=== PATIENT | male | born 1955 | race African-American/Black ===

== ENCOUNTER 2024-10-30 12:27 | Inpatient (IN) | payer OTHER ==
[2024-10-30 13:01] VITALS: BMI 17.4
[2024-10-30] MEDS ORDERED: ACETAMINOPHEN 325 MG TABLET (FP) PO PRN (13:15)
[2024-10-30] MEDS ORDERED: POLYETHYLENE GLYCOL (HEALTHYLAX) 3350 17 GM PACKET PO PRN (13:15)
[2024-10-30] MEDS ORDERED: IBUPROFEN 600 MG TABLET (FP) PO PRN (13:15)
[2024-10-30] MEDS ORDERED: BISMUTH SUBSALICYLATE 524 MG/30 ML PO PRN (13:15)
[2024-10-30] MEDS ORDERED: IBUPROFEN 400 MG TABLET (FP) PO PRN (13:15)
[2024-10-30] MEDS ORDERED: MAGNESIUM HYDROX 2400MG/30ML ORAL SUSPENSION 30 ML CUP PO PRN (13:15)
[2024-10-30] MEDS ORDERED: DICYCLOMINE HCL 10 MG CAPSULE PO PRN (13:15)
[2024-10-30] MEDS ORDERED: NALOXONE (NARCAN) HCL 4 MG/0.1 ML SPRAY NS PRN (13:15)
[2024-10-30] MEDS ORDERED: BENZOCAINE/MENTHOL (CHLORASEPTIC ) LOZENGE MM PRN (13:15)
[2024-10-30] MEDS ORDERED: METHOCARBAMOL 500 MG TABLET PO PRN (13:15)
[2024-10-30] MEDS ORDERED: ONDANSETRON *ODT* 4 MG TABLET SL PRN (13:15)
[2024-10-30] MEDS ORDERED: guaiFENesin 600 MG TABLET.ER (FP) PO PRN (13:15)
[2024-10-30] MEDS ORDERED: hydrOXYzine PAMOATE 25 MG CAPSULE (FP) PO PRN (13:15)
[2024-10-30] MEDS ORDERED: BENZONATATE 200 MG CAPSULE PO PRN (13:15)
[2024-10-30] MEDS ORDERED: MAG HYDROX/AL HYDROX/SIMETH 30 ML UNIT-DOSE CUP PO PRN (13:15)
[2024-10-30] MEDS ORDERED: cloNIDine HCL 0.1 MG TABLET ONE (14:35)
[2024-10-30] MEDS ORDERED: PRENATAL VITAMINS W/ FOLIC ACID TABLET (FP) PO ONE (14:35)
[2024-10-30] MEDS ORDERED: methaDONE HCL 10 MG TABLET (FOR DETOX USE ONLY) ONE (14:35)
[2024-10-30] MEDS: methaDONE HCL 10 MG TABLET PO ONE (14:40)
[2024-10-30] MEDS: PRENATAL VITAMINS W/ FOLIC ACID TABLET (FP) PO SCH (14:40)
[2024-10-30] MEDS: cloNIDine HCL 0.1 MG TABLET PO SCH (14:40)
[2024-10-30] MEDS ORDERED: methaDONE HCL 10 MG TABLET PO PRN (15:16)
[2024-10-30] MEDS: GABAPENTIN 100 MG CAPSULE PO SCH ×2 (17:29→17:35)
[2024-10-30] MEDS: THIAMINE 100 MG TABLET PO SCH (22:27)
[2024-10-30] MEDS: MELATONIN 5 MG TABLETS PO SCH (22:27)
[2024-10-30] MEDS: KETOCONAZOLE 2% CREAM - 60GM TUBE TP SCH (22:43)
[2024-10-31] MEDS: BICTEGRAV/EMTRICIT/TENOFOV (BIKTARVY) 50-200-25 MG TABLET PO SCH (07:06)
[2024-10-31] MEDS: SULFAMETHOXAZOLE/TRIMETHOPRIM 800MG/160MG D.S. TABLET PO SCH (10:36)
[2024-10-31] MEDS: methaDONE 40 MG, methaDONE 10 MG PO ONE (10:37)
[2024-10-31 10:50] LABS: HEMATOCRIT 28.8 % (40.1-51.0); HEMOGLOBIN 9.3 g/dL (13.7-17.5); MCHC 32.3 g/dl (32.3-36.5); MEAN PLT VOLUME 9.6 fl (9.4-12.4); PLATELET COUNT 270 x10^3/uL (163-337); RDW 17.4 % (12.2-16.4)
[2024-10-31] MEDS: FLU VACCINE (FLULAVAL) PF 45 MCG/0.5 ML SYRINGE 2024-2025 IM ONE (11:21)
[2024-10-31] MEDS: PNEUMOC 20-VAL CONJ-DIP CRM/PF 0.5 ML SYRINGE IM ONE (11:33)
[2024-10-31 13:18] LABS: POTASSIUM 4.2 mmol/L (3.5-5.1)
[2024-10-31 13:20] LABS: ALBUMIN 2.2 g/dl (3.4-5.0); BLOOD UREA NITROGEN 9.5 mg/dL (7-18); CALCIUM 8.8 mg/dL (8.5-10.1)
[2024-10-31] MEDS: FERROUS SO4 325 MG TABLET (FP) PO SCH (13:22)
[2024-10-31 13:24] LABS: CREATININE 0.9 mg/dL (0.55-1.3)
[2024-10-31 13:25] LABS: BILIRUBIN,TOTAL 0.5 mg/dL (0.2-1); TOT PROT 6.5 g/dl (6.4-8.2)
[2024-10-31] MEDS: LOPERAMIDE HCL 2 MG CAPSULE PO PRN (22:24)
[2024-11-01] MEDS ORDERED: cloNIDine HCL 0.1 MG TABLET PO PRN
[2024-11-01] MEDS: methaDONE 40 MG, methaDONE 20 MG PO ONE (10:18)
[2024-11-02] MEDS: methaDONE 40 MG, methaDONE 30 MG PO ONE (09:18)
[2024-11-03] MEDS: methaDONE HCL 40 MG DISPERSABLE TABLET PO ONE (10:18)
[2024-11-03 11:27] LABS: HEMATOCRIT 26.7 % (40.1-51.0); HEMOGLOBIN 9.1 g/dL (13.7-17.5); MCHC 34.1 g/dl (32.3-36.5); MEAN PLT VOLUME 9.8 fl (9.4-12.4); PLATELET COUNT 315 x10^3/uL (163-337); RDW 17.5 % (12.2-16.4)
[2024-11-04 06:17] VITALS: RESP 16
[2024-11-04 08:54] VITALS: BP 103/67; PULSE 82; TEMP 97.9
[2024-11-04] MEDS: methaDONE 80 MG, methaDONE 10 MG PO ONE (09:16)
== END 2024-11-04 12:28 | disposition other institution (70) | DRG 897 ==
LOC: YASAS 12:27 → Y6N 14:32
PROVIDERS: ADMIT Allergy & Immunology; ATTEND Allergy & Immunology
PROC: HZ2ZZZZ Detoxification Services for Substance Abuse Treatment (ICD-10-PCS; principal; 2024-10-30)
DX: F11.23 Opioid dependence with withdrawal (principal); F14.20 Cocaine dependence, uncomplicated; G99.0 Autonomic neuropathy in diseases classified elsewhere; F17.210 Nicotine dependence, cigarettes, uncomplicated; F31.9 Bipolar disorder, unspecified; F19.24 Other psychoactive substance dependence with psychoactive substance-induced mood disorder; F43.10 Post-traumatic stress disorder, unspecified; Z21 Asymptomatic human immunodeficiency virus [HIV] infection status; Z85.46 Personal history of malignant neoplasm of prostate; Z90.79 Acquired absence of other genital organ(s); Z79.899 Other long term (current) drug therapy
CPT/HCPCS: 36415; 80053; 80305; 80307; 85027; 86780; 87811; 90656; 90677; 93005; 93010

== ENCOUNTER 2024-11-04 11:49 | Inpatient (IN) | payer OTHER ==
[2024-11-04] MEDS ORDERED: BENZONATATE 200 MG CAPSULE PO PRN (13:51)
[2024-11-04] MEDS ORDERED: METHOCARBAMOL 500 MG TABLET PO PRN (13:51)
[2024-11-04] MEDS ORDERED: NICOTINE POLACRILEX 4 MG GUM BUC PRN (13:51)
[2024-11-04] MEDS ORDERED: NALOXONE (NARCAN) HCL 4 MG/0.1 ML SPRAY NS PRN (13:51)
[2024-11-04] MEDS ORDERED: NALOXONE HCL 0.4 MG/ML VIAL IVPUSH PRN (13:51)
[2024-11-04] MEDS ORDERED: IBUPROFEN 600 MG TABLET (FP) PO PRN (13:51)
[2024-11-04] MEDS ORDERED: POLYETHYLENE GLYCOL (HEALTHYLAX) 3350 17 GM PACKET PO PRN (13:51)
[2024-11-04] MEDS ORDERED: NICOTINE POLACRILEX 4 MG LOZENGE BC PRN (13:51)
[2024-11-04] MEDS ORDERED: MAGNESIUM HYDROX 2400MG/30ML ORAL SUSPENSION 30 ML CUP PO PRN (13:51)
[2024-11-04] MEDS ORDERED: hydrOXYzine PAMOATE 25 MG CAPSULE (FP) PO PRN (13:51)
[2024-11-04] MEDS ORDERED: BENZOCAINE/MENTHOL (CHLORASEPTIC ) LOZENGE MM PRN (13:51)
[2024-11-04] MEDS ORDERED: guaiFENesin 600 MG TABLET.ER (FP) PO PRN (13:51)
[2024-11-04] MEDS ORDERED: IBUPROFEN 400 MG TABLET (FP) PO PRN (13:51)
[2024-11-04] MEDS ORDERED: ACETAMINOPHEN 325 MG TABLET (FP) PO PRN (13:51)
[2024-11-04] MEDS ORDERED: MAG HYDROX/AL HYDROX/SIMETH 30 ML UNIT-DOSE CUP PO PRN (13:51)
[2024-11-04] MEDS ORDERED: NICOTINE 7 MG/24 HOURS TOPICAL PATCH TD PRN (13:51)
[2024-11-04] MEDS ORDERED: LOPERAMIDE HCL 2 MG CAPSULE PO PRN (13:51)
[2024-11-04] MEDS: GABAPENTIN 100 MG CAPSULE PO SCH (14:41)
[2024-11-04] MEDS: MELATONIN 5 MG TABLETS PO SCH (21:16)
[2024-11-04] MEDS: THIAMINE 100 MG TABLET PO SCH (21:16)
[2024-11-05] MEDS: methaDONE 80 MG, methaDONE 10 MG PO SCH (05:58)
[2024-11-05] MEDS ORDERED: methaDONE HCL 10 MG TABLET PO SCH (06:00)
[2024-11-05] MEDS: BICTEGRAV/EMTRICIT/TENOFOV (BIKTARVY) 50-200-25 MG TABLET PO SCH (07:43)
[2024-11-05] MEDS: PRENATAL VITAMINS W/ FOLIC ACID TABLET (FP) PO SCH (10:46)
[2024-11-05] MEDS: SULFAMETHOXAZOLE/TRIMETHOPRIM 800MG/160MG D.S. TABLET PO SCH (10:46)
[2024-11-05] MEDS: KETOCONAZOLE 2% CREAM - 60GM TUBE TP SCH (16:00)
[2024-11-06] MEDS: FERROUS SO4 325 MG TABLET (FP) PO SCH (10:18)
[2024-11-08 06:08] VITALS: RESP 18
[2024-11-09 06:36] VITALS: BP 104/68; PULSE 75; TEMP 98
== END 2024-11-09 13:14 | disposition home or self-care (01) | DRG 895 ==
LOC: YASAS 11:49 → Y3W 11:50 → Y5N 11-06 11:37 → Y3W 11-06 11:40
PROVIDERS: ADMIT Psychiatry & Neurology Pain Medicine; ATTEND Psychiatry & Neurology Pain Medicine
PROC: HZ42ZZZ Group Counseling for Substance Abuse Treatment, Cognitive-Behavioral (ICD-10-PCS; principal; 2024-11-04)
DX: F11.20 Opioid dependence, uncomplicated (principal); F14.20 Cocaine dependence, uncomplicated; B20 Human immunodeficiency virus [HIV] disease; G99.0 Autonomic neuropathy in diseases classified elsewhere; Z59.01 Sheltered homelessness; F10.20 Alcohol dependence, uncomplicated; F12.20 Cannabis dependence, uncomplicated; F17.210 Nicotine dependence, cigarettes, uncomplicated; F31.9 Bipolar disorder, unspecified; F19.24 Other psychoactive substance dependence with psychoactive substance-induced mood disorder; F43.10 Post-traumatic stress disorder, unspecified; F41.9 Anxiety disorder, unspecified; Z85.46 Personal history of malignant neoplasm of prostate